=== PATIENT | male | born 1995 | race Asian ===

== ENCOUNTER 2019-12-08 12:23 | Emergency (ER) | payer OTHER ==
[~2019-12-08] VITALS: Ht 180.3 cm; Wt 88.1 kg
--- NOTE | 2019-12-08 14:12 | REP ---
Left long finger series: Four views. History: Trauma. Findings: There is an open crush type fracture of the distal tuft of the long finger with comminution. No opaque foreign bodies seen. On lateral view, dated of the distal tuft fracture fragment is displaced in a palmar direction. Impression: Open crush type fracture distal tuft right long finger. Electronically Signed by Dany Kline MD 12/08/2019 02:04 P
[2019-12-08 15:49] VITALS: BP 129/59
[2019-12-08] MEDS ORDERED: KEFL250C11 PO (15:49)
== END 2019-12-08 15:59 | disposition home or self-care (01) ==
LOC: M ED 12:23
DX: S62.632B Displaced fracture of distal phalanx of right middle finger, initial encounter for open fracture (principal); S67.192A Crushing injury of right middle finger, initial encounter; W20.8XXA Other cause of strike by thrown, projected or falling object, initial encounter; Y92.138 Other place on military base as the place of occurrence of the external cause; Y93.89 Activity, other specified; Y99.1 Military activity